=== PATIENT | female | born 1995 | race Caucasian/White ===

== ENCOUNTER 2017-05-13 10:31 | Emergency (ER) | payer OTHER ==
[~2017-05-13] VITALS: Ht 157.4 cm; Wt 65.8 kg
[2017-05-13] MEDS ORDERED: ZOFRAN4 MG PO (11:25)
[2017-05-13 11:35] LABS: BASO % 0.3 % (0.0-1.0); EOS # 0.1 10*3/uL (0.0-0.4); EOS % 0.4 % (1.0-4.0); HEMATOCRIT 46.5 % (37.0-47.0); LYMPH # 1.2 10*3/uL (1.3-4.4); LYMPH % 8.2 % (27.0-41.0); MEAN CELL VOLUME 87.2 fl (81.0-99.0); MEAN CORPUSCULAR HGB 28.1 pg (27.0-31.0); MEAN CORPUSCULAR HGB CONC 32.3 g/dl (33.0-37.0); MEAN PLATELET VOLUME 9.4 fl (9.6-12.3); MONO # 0.7 10*3/uL (0.1-1.0); MONO % 4.7 % (3.0-9.0); NEUT # 12.1 10*3/uL (2.3-7.9); NEUT % 86.2 % (47.0-73.0); PLATELET COUNT AUTOMATED 369 10*3/uL (130-400); RED BLOOD COUNT 5.33 10*6/uL (4.10-5.10); RED CELL DISTRI WIDTH 13.6 % (0-14.5); WHITE BLOOD COUNT 14.1 10*3/uL (4.8-10.8)
[2017-05-13 11:48] LABS: ALBUMIN 3.6 gm/dl (3.1-4.5); ALKALINE PHOSPHATASE 110 U/L (45-117); BUN 12 mg/dl (7-24); CHLORIDE 106 mmol/L (98-107); CREATININE 0.63 mg/dL (0.55-1.02); POTASSIUM 4.1 mmol/L (3.5-5.1); SGOT/AST 11 IU/L (3-35); SGPT/ALT 17 U/L (12-78); SODIUM 140 mmol/L (136-145); TOTAL PROTEIN 7.9 gm/dL (6.4-8.2)
[2017-05-13 11:54] LABS: BILIRUBIN 1+ (NEGATIVE); BLOOD 3+ (NEGATIVE); CLARITY CLOUDY (CLEAR); COLOR YELLOW (YELLOW); GLUCOSE NEGATIVE (NEGATIVE); KETONE NEGATIVE (NEGATIVE); LEUKO ESTERASE 2+ (NEGATIVE); NITRITE NEGATIVE (NEGATIVE); PH 7.5 (5.0-9.0)
[2017-05-13 12:02] LABS: RBC TNTC rbc/hpf (0-2)
== END 2017-05-13 14:29 | disposition home or self-care (01) ==
LOC: ED 10:31
PROVIDERS: Nurse Practitioner Family
DX: K52.9 Noninfective gastroenteritis and colitis, unspecified (principal); R03.0 Elevated blood-pressure reading, without diagnosis of hypertension

== ENCOUNTER 2017-08-09 22:00 | Emergency (ER) | payer OTHER ==
[~2017-08-09] VITALS: Ht 157.4 cm; Wt 72.6 kg
[~2017-08-09 22:00] MED LIST: ZOFRAN4 MG PO
[2017-08-09] MEDS ORDERED: APRI 28 DAY TA1 EACH PO (22:08)
[2017-08-09] MEDS ORDERED: OMNICEF300 MG PO (22:34)
== END 2017-08-09 22:38 | disposition home or self-care (01) ==
LOC: ED 22:00
DX: J02.9 Acute pharyngitis, unspecified (principal); Z79.899 Other long term (current) drug therapy

== ENCOUNTER 2019-05-08 21:02 | Emergency (ER) | payer OTHER ==
[~2019-05-08] VITALS: Ht 157.4 cm; Wt 77.1 kg
[~2019-05-08 21:02] MED LIST changes: +APRI 28 DAY TA1 EACH PO; +OMNICEF300 MG PO
[2019-05-08] MEDS ORDERED: CEPHALEXIN500 M1 PO (22:08)
== END 2019-05-08 23:31 | disposition home or self-care (01) ==
LOC: ED 21:02
DX: S70.361A Insect bite (nonvenomous), right thigh, initial encounter (principal); Z79.2 Long term (current) use of antibiotics; Z79.899 Other long term (current) drug therapy; W57.XXXA Bitten or stung by nonvenomous insect and other nonvenomous arthropods, initial encounter; Y93.89 Activity, other specified; Y92.89 Other specified places as the place of occurrence of the external cause; Y99.8 Other external cause status